=== PATIENT | male | born 1955 | race Caucasian/White ===

== ENCOUNTER 2018-12-06 09:18 | Emergency (ER) | payer BC ==
[2018-12-06 09:51] LABS: #Basophils 0.1 thou/uL (0.0-0.2); #Eosinphils 0.3 thou/uL (0.0-0.7); #Lymphocytes 2.6 thou/uL (1.20-3.40); #Monocytes 0.7 thou/uL (0.11-0.59); #Neutrophils 3.8 thou/uL (1.40-6.50); %Basophils 0.9 % (0.0-1.0); %Eosinophils 4.6 % (0.0-10.0); %Lymphocytes 34.9 % (21.0-51.0); %Neutrophils 50.6 % (42.0-75.0); Mean Corpuscular HGB CONC 34.2 g/dL (32.0-36.0); Mean Corpuscular Hemoglobin 34.1 pg (27.0-31.0); Mean Corpuscular Volume 99.7 fL (78.0-98.0); Mean Platelet Volume 7.6 fL (7.4-10.4); Platelet Count 229 thou/uL (130-400); RBC Distribution Width 11.7 % (11.5-14.5); White Blood Cell (WBC) Count 7.5 thou/uL (4.8-10.8)
--- NOTE | 2018-12-06 10:01 | RAD ---
PORTABLE CHEST: History: Chest pain. FINDINGS: Lung lee are clear. Vascular markings are normal. Heart size is normal. IMPRESSION: No acute abnormality. POS: [facility]
[2018-12-06] MEDS ORDERED: Morphine 4 MG/ML VIAL ONE (10:10)
[2018-12-06] MEDS ORDERED: Ondansetron PF 4 MG/2 ML Vial ONE (10:10)
[2018-12-06] MEDS ORDERED: Mag-Al 1200 mg/1200 mg/30 ML UDCUP ONE (10:11)
[2018-12-06] MEDS ORDERED: Lidocaine Viscous Sol 2% 15 ml UD Cup ONE (10:11)
[2018-12-06 10:13] LABS: ALT (SGPT) 30 U/L (8-55); AST (SGOT) 30 U/L (5-34); Albumin 4.1 g/dL (3.4-4.8); Alkaline Phosphatase 125 U/L (40-150); Anion Gap 13 mmol/L (10-20); BUN (Urea Nitrogen) 15 mg/dL (8.4-25.7); Bilirubin, Total 0.5 mg/dL (0.2-1.2); CK (CPK) 154 U/L (30-200); Calc. Creatinine Clearance 0 mL/min (70-130); Calcium 9.1 mg/dL (7.8-10.44); Carbon Dioxide 26 mmol/L (23-31); Chloride 102 mmol/L (98-107); Estimated GFR-MDRD Greater than 90; Globulin 2.5 g/dL (2.4-3.5); Glucose 178 mg/dL (80-115); Lipase 37 U/L (8-78); Potassium 3.9 mmol/L (3.5-5.1); Protein, Total 6.6 g/dL (5.8-8.1); Sodium 137 mmol/L (136-145)
[2018-12-06 10:48] LABS: Bilirubin Negative (Negative); Blood, Urine Negative (Negative); Glucose, Urine (Dipstick) Negative (Negative); Leukocyte Negative (Negative); Nitrite Negative (Negative); Protein, Urine (Dipstick) Negative (Neg-Trace); Specific Gravity, Urine 1.015 (1.005-1.030); Urobilinogen 0.2 mg/dL (0.2-1.0); pH, Urine 7.5 (5.0-9.0)
[2018-12-06 10:51] LABS: Clarity Clear (Clear)
--- NOTE | 2018-12-06 11:41 | ULT ---
ULTRASOUND GALLBLADDER RIGHT UPPER QUADRANT: HISTORY: Abdominal pain. COMPARISON: None. FINDINGS: Real-time, mckeon scale, and color evaluation of the right upper quadrant of the abdomen was performed. Visualized portions of the aorta and IVC are unremarkable. Pancreas unremarkable. The liver measure s 16.6 cm in length. Gallbladder wall thickness is 3 mm. Sonographic Turcios's sign is negative. Common bile duct is norm al. Pancreatic duct measures 2 mm. The right kidney measures 11.4 x 4.4 x 4.7 cm. No hepatic mass. No pericholecystic fluid or cholelithiasis. The portal vein is patent with antegra de flow. IMPRESSION: Normal examination. POS: [facility]
--- NOTE | 2018-12-06 12:04 | CT ---
CT ANGIOGRAM OF CHEST WITH CONTRAST: Date: 12/06/18 HISTORY: Chest pain. Shortness of breath. Weight loss. COMPARISON: CT angiogram of chest from 2017. FINDINGS: CT angiogram of the chest performed after the intravenous administration of contrast. 3D rendering pr ovided. No proximal or segmental pulmonary arterial filling defect. Pulmonary trunk size is normal. No perica rdial effusion. Aortic size is nonaneurysmal. Limited evaluation of the upper abdomen is unremarkable. A few calcified pleural plaques in right lung base with chronic pleural thickening. There is low grad e atelectatic change in the right lung base. No suspicious pulmonary nodule. No pneumothorax. Mild vo lume loss right hemithorax relative to the left. No suspicious pulmonary nodule. Old left anterior 4th rib fracture. Old left anterior 5th rib fractur e and 6th rib fracture. No acute rib fracture is appreciated. No suspicious osteolytic or osteoblasti c lesions. IMPRESSION: 1. Chronic right peripheral basilar pleural thickening with a few calcifications. No acute intrathor acic abnormality. 2. No proximal or segmental pulmonary arterial filling defect. 3. No suspicious pulmonary nodules or evidence for metastatic disease. POS: [facility]
--- NOTE | 2018-12-06 12:10 | CT ---
CT ABDOMEN AND PELVIS WITH CONTRAST: Date: 12/06/18 HISTORY: Abdominal pain. Right upper quadrant epigastric pain. COMPARISON: CT abdomen and pelvis dated 07/24/12. FINDINGS: The splenic hypodensity has decreased in size from comparison examination, now measuring approximatel y 4.0 mm. There is mild periportal edema. Gallbladder is unremarkable. The aortic contour is nonaneurysmal. No free intraperitoneal gas or fluid. No dilated loops of large or small bowel. The appendix is felt to be visualized and is normal. The exam is somewhat delayed as there is contrast within the renal calices and renal pelvises. No ret roperitoneal adenopathy. The pancreas is unremarkable. No adrenal gland mass. Moderate narrowing of L5-S1 disc space. Moderate facet arthropathy. Mild narrowing of the pubic symph ysis. No suspicious osteolytic or osteoblastic lesions. IMPRESSION: 1. No acute inflammatory process in the abdomen or pelvis. 2. No evidence of distant metastatic disease. 3. Slight decrease in splenic hypodensity seen back in 2011, likely benign. POS: [facility]
[2018-12-06 13:35] LABS: Free T4 (Free Thyroxine) 0.9 ng/dL (0.70-1.48)
--- NOTE | 2018-12-07 13:56 | EKG ---
Test Reason : CP Blood Pressure : / mmHG Vent. Rate : 073 BPM Atrial Rate : 073 BPM P-R Int : 134 ms QRS Dur : 076 ms QT Int : 384 ms P-R-T Axes : 085 079 071 degrees QTc Int : 423 ms Normal sinus rhythm Normal ECG Confirmed by HOWIE RAMOS D.O. ([id number]), image editor ANGELLA VALLEJO ([id number]) on 12/07/2018 1:55:46 PM Referred By: Confirmed By:HOWIE RAMOS D.O.
== END 2018-12-06 14:34 | disposition home or self-care (01) ==
LOC: ERS 09:18
DX: R10.13 Epigastric pain (principal); R10.11 Right upper quadrant pain; R07.89 Other chest pain; J44.9 Chronic obstructive pulmonary disease, unspecified; F31.9 Bipolar disorder, unspecified; F41.9 Anxiety disorder, unspecified; F17.210 Nicotine dependence, cigarettes, uncomplicated
CPT/HCPCS: 71045; 71275; 74177; 76705; 80053; 81003; 82550; 83690; 83735; 84439; 84443; 84481; 84484; 85025; 85379; 93005; 96361; 96374; 96375; J2270; J2405

== ENCOUNTER 2018-12-28 09:26 | Day surgery (SDC) | payer BC ==
[2018-12-28] MEDS ORDERED: Ketorolac Tromethamine 30 MG/ML VIAL IVP PRN (12:20)
[2018-12-28] MEDS ORDERED: HYDROmorphone 2 MG/ML VIAL SLOW IVP PRN (12:20)
[2018-12-28] MEDS ORDERED: Meperidine HCl/PF 25 MG/ML VIAL SLOW IVP PRN (12:20)
[2018-12-28] MEDS ORDERED: Promethazine HCl 25 MG/ML VIAL IM PRN (12:20)
[2018-12-28] MEDS ORDERED: Ondansetron HCl/PF 4 MG/2 ML Vial IVP PRN (12:20)
[2018-12-28] MEDS ORDERED: Promethazine HCl 25 MG/ML VIAL SLOW IVP PRN (12:20)
--- NOTE | 2018-12-28 14:44 | OP ---
DATE OF PROCEDURE: 12/28/2018 PROCEDURES PERFORMED: EGD with dilatation. PREOPERATIVE DIAGNOSES: 1. Epigastric pain with recent visit to the ER with normal CAT scan, lipase and CBC. 2. Empirically placed on PPIs by his primary physician. 3. Intermittent dysphagia with previous history of radiation therapy for throat cancer 10 years ago. POSTPROCEDURE DIAGNOSES: 1. 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 This was dilated with 18 mm/54-[place] Rodriguez dilator. A second-look showed slight effect with no evidence of perforation. 2. Small hiatal hernia. 3. Normal stomach. 4. Normal duodenum. RECOMMENDATIONS: 1. Continue PPI and start Carafate. 2. Await hepatitis C testing screening. 3. Follow up in the office in 4 to 6 weeks. ANESTHESIA: TIVA. DESCRIPTION OF PROCEDURE: The patient was informed of the risks, benefits, possible complications of endoscopy including perforation, reaction to medication, and aspiration, informed consent was obtained. The patient was brought to the endoscopy suite, where he was sedated in gradual fashion. Once he was comfortable, a bite block was placed into his oropharynx. The endoscope was advanced to the esophagus, stomach, and second and third portion of duodenum, and slowly removed. 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 The scope was able to be advanced past this area. There was no evidence of masses or tumors. There was a small hiatal hernia about 3 cm in size. It was sliding. The decision was made to go ahead and dilate the proximal esophageal/pharyngeal stricture with regard to the patient's history of dysphagia. This was done with a 54-[place] Rodriguez dilator. Second look showed mild disruption of the stricture, but no overt perforation or tearing or bleeding. The scope was removed. The patient tolerated the procedure well without complications. Job ID: [id number]
[2018-12-31 17:10] LABS: HCV log10 6.185 (.); Hep C PCR-Quant 1530000 IU/mL (.)
== END 2018-12-28 15:39 | disposition home or self-care (01) ==
LOC: SDC 09:26
PROVIDERS: ATTEND Internal Medicine Gastroenterology
PROC: 0D717ZZ Dilation of Upper Esophagus, Via Natural or Artificial Opening (ICD-10-PCS; principal; 2018-12-28)
PROC: 0DJ08ZZ Inspection of Upper Intestinal Tract, Via Natural or Artificial Opening Endoscopic (ICD-10-PCS; principal; 2018-12-28)
DX: K22.2 Esophageal obstruction (principal); K44.9 Diaphragmatic hernia without obstruction or gangrene; F31.9 Bipolar disorder, unspecified; F41.9 Anxiety disorder, unspecified; B18.2 Chronic viral hepatitis C; Z92.3 Personal history of irradiation; Z79.899 Other long term (current) drug therapy
CPT/HCPCS: 36415; 87522; 87902